=== PATIENT | female | born 1965 | race Two or more races ===

== ENCOUNTER 2017-01-02 22:53 | Emergency (ER) | payer SELFPAY ==
[~2017-01-02] VITALS: Ht 165.1 cm; Wt 90.7 kg
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
[2017-01-02] MEDS ORDERED: oxyCODONE/APAP (5/325 MG) 1 UDTAB TABLET ONE (23:30)
[2017-01-02] MEDS ORDERED: ONDANSETRON 4 MG TAB.RAPDIS ONE (23:30)
[2017-01-02] MEDS ORDERED: oxyCODONE/APAP (5/325 MG) 1 UDTAB TABLET PO ONE (23:30)
[2017-01-02] MEDS ORDERED: ONDANSETRON 4 MG TAB.RAPDIS SL ONE (23:30)
--- NOTE | 2017-01-02 23:36 | NUR ---
medicated patient as ordered by BARBIE Garcia. Patient taken to radiology.
--- NOTE | 2017-01-03 01:02 | NUR ---
Patient discharged to home in stable condition. Written and verbal after care instructions given. Patient verbalizes understanding of instruction. Patient wheeled to private car, accompanied by family. No further complaints.
[2017-01-03 01:03] VITALS: BP 120/74
== END 2017-01-03 01:04 | disposition home or self-care (01) ==
LOC: ER 22:54
DX: S19.9XXA Unspecified injury of neck, initial encounter (principal); V49.59XA Passenger injured in collision with other motor vehicles in traffic accident, initial encounter; Y93.89 Activity, other specified; Y92.89 Other specified places as the place of occurrence of the external cause; Y99.8 Other external cause status
CPT/HCPCS: 70450; 72125; 73030; 73060; 73090; 73130; 99284; A4606; Q0162; Z7610